=== PATIENT | female | born 1950 | race African-American/Black ===

== ENCOUNTER 2017-06-09 15:18 | Emergency (ER) | payer OTHER ==
[~2017-06-09] VITALS: Ht 160 cm; Wt 100.0 kg
[~2017-06-09 15:18] MED LIST: ASPIRN PO; CARV25 PO; LOSA50TA37 PO; MELO-106 PO; PROM25TA7 PO
[2017-06-09] MEDS ORDERED: SACU1TAB PO (15:21)
[2017-06-09] MEDS ORDERED: ACETAMINOPHEN/CODEINE 300-30 MG TABLET PO ONE (16:15)
[2017-06-09] MEDS ORDERED: LIDOCAINE HCL 1% 10 ML VIAL INJ ONE (16:15)
[2017-06-09] MEDS ORDERED: POVIDONE-IODINE 10% 15 ML SOLUTION UD TP ONE (16:15)
[2017-06-09] MEDS ORDERED: ASPI81 PO (16:15)
[2017-06-09] MEDS ORDERED: KETOROLAC TROMETHAMINE 30 MG/ML VIAL IM ONE (16:30)
[2017-06-09] MEDS ORDERED: ONDANSETRON HCL 4 MG TABLET PO ONE (17:15)
[2017-06-09 18:30] VITALS: BP 141/85
[2017-06-09] MEDS ORDERED: HYDROCODONE/ACETAMINOPHEN 5-325 MG TABLET PO ONE (18:30)
[2017-06-09] MEDS ORDERED: PERTUSS(ACELL),DIPH,TET VAC/PF 0.5 ML VIAL IM ONE (18:30)
== END 2017-06-09 19:16 | disposition home or self-care (01) ==
LOC: EMS 15:22
DX: S61.011A Laceration without foreign body of right thumb without damage to nail, initial encounter (principal); I11.0 Hypertensive heart disease with heart failure; I50.9 Heart failure, unspecified; Z79.82 Long term (current) use of aspirin; W18.30XA Fall on same level, unspecified, initial encounter; Y93.89 Activity, other specified; Y92.89 Other specified places as the place of occurrence of the external cause; Y99.8 Other external cause status
CPT/HCPCS: 12002; 73130; 90471; 90715; 96372; 99284; J1885; J3490; Q0162

== ENCOUNTER 2017-06-11 08:39 | Emergency (ER) | payer OTHER ==
[~2017-06-11] VITALS: Ht 160 cm; Wt 100.0 kg
[~2017-06-11 08:39] MED LIST changes: +ASPI81 PO; -ASPIRN PO; -LOSA50TA37 PO; +SACU1TAB PO
[2017-06-11] MEDS ORDERED: IBUP-1506 PO (08:48)
[2017-06-11] MEDS ORDERED: HYDR-309 PO (08:48)
[2017-06-11 11:09] VITALS: BP 125/80
== END 2017-06-11 11:19 | disposition home or self-care (01) ==
LOC: EMS 08:42
DX: S61.411D Laceration without foreign body of right hand, subsequent encounter (principal); I11.0 Hypertensive heart disease with heart failure; I50.9 Heart failure, unspecified; I25.10 Atherosclerotic heart disease of native coronary artery without angina pectoris; Z48.00 Encounter for change or removal of nonsurgical wound dressing; X58.XXXD Exposure to other specified factors, subsequent encounter
CPT/HCPCS: 99283